=== PATIENT | male | born 1995 | race American Indian/Alaskan Native ===

== ENCOUNTER 2017-07-31 18:43 | Emergency (ER) | payer OTHER ==
[2017-07-31] MEDS ORDERED: NORCO 5/325 PO ONE (20:53)
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
[2017-07-31 22:41] VITALS: BP 107/59
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
== END 2017-07-31 22:35 | disposition home or self-care (01) ==
LOC: ED 18:43
DX: S02.31XA Fracture of orbital floor, right side, initial encounter for closed fracture (principal); S63.502A Unspecified sprain of left wrist, initial encounter; M79.641 Pain in right hand; F12.10 Cannabis abuse, uncomplicated; Y08.89XA Assault by other specified means, initial encounter; Y93.89 Activity, other specified; Y99.8 Other external cause status; Y92.89 Other specified places as the place of occurrence of the external cause
CPT/HCPCS: 70450; 70486